=== PATIENT | male | born 1980 | race Caucasian/White ===

== ENCOUNTER 2017-02-03 22:18 | Emergency (ER) | payer BC, OTHER ==
[~2017-02-03] VITALS: Ht 185.4 cm; Wt 117.9 kg
[2017-02-03 22:44] VITALS: BP_SYST 137
[2017-02-04 00:18] VITALS: BP_SYST 125
== END 2017-02-04 00:21 | disposition home or self-care (01) ==
LOC: SED 22:18
DX: S16.1XXA Strain of muscle, fascia and tendon at neck level, initial encounter (principal); T14.8 Other injury of unspecified body region; M25.511 Pain in right shoulder; M25.531 Pain in right wrist; M54.9 Dorsalgia, unspecified; K21.9 Gastro-esophageal reflux disease without esophagitis; F41.9 Anxiety disorder, unspecified; F43.10 Post-traumatic stress disorder, unspecified; V89.2XXA Person injured in unspecified motor-vehicle accident, traffic, initial encounter; Y93.89 Activity, other specified; Y99.8 Other external cause status; Y92.89 Other specified places as the place of occurrence of the external cause
CPT/HCPCS: 72050-TC; 73030; 99284

== ENCOUNTER 2017-03-14 09:04 | Emergency (ER) | payer BC, OTHER ==
[~2017-03-14] VITALS: Ht 185.4 cm; Wt 117.9 kg
[2017-03-14 09:29] VITALS: BP 124/89; PULSE 67; RESP 16; TEMP 97.7; O2SAT 98
[2017-03-14] MEDS ORDERED: KETOROLAC TROMETHAMINE 60 MG/2 ML VIAL IM ONE (10:15)
[2017-03-14 11:25] VITALS: BP 131/62; PULSE 69; RESP 16; TEMP 98; O2SAT 96
== END 2017-03-14 11:25 | disposition home or self-care (01) ==
LOC: SED 09:04
DX: S39.012A Strain of muscle, fascia and tendon of lower back, initial encounter (principal); F41.9 Anxiety disorder, unspecified; K21.9 Gastro-esophageal reflux disease without esophagitis; F43.10 Post-traumatic stress disorder, unspecified; X58.XXXA Exposure to other specified factors, initial encounter; Y93.89 Activity, other specified; Y92.89 Other specified places as the place of occurrence of the external cause; Y99.8 Other external cause status
CPT/HCPCS: 96372; 99283; J1885

== ENCOUNTER 2017-08-19 15:46 | Emergency (ER) | payer BC, OTHER ==
[~2017-08-19] VITALS: Ht 182.9 cm; Wt 117.9 kg
[2017-08-19 15:46] VITALS: BP_SYST 161
--- NOTE | 2017-08-19 15:46 | NUR ---
BROUGHT BACK TO BED #3 AND TRIAGED. REPORT GIVEN TO SONU
--- NOTE | 2017-08-19 16:00 | NUR ---
Patient to ER via triage with c/o dog bite to left forearm, from unknown dog. Unknown on vaccine status of dog. Patient with dressing applied to left forearm with no active bleeding noted, patient reports that there was "bleeding all over" patient thinks that a vein was punctured. Awaiting evaluation by ER MD-will continue to observe and assess.
--- NOTE | 2017-08-19 16:20 | NUR ---
Dr Garcia at bedside to evaluate patient.
[2017-08-19] MEDS ORDERED: AMOXICILLIN/CLAVULANATE POTASSIUM 875 MG TABLET PO ONE (16:30)
[2017-08-19] MEDS ORDERED: BACITRACIN 1 GM OINT TP ONE (16:30)
[2017-08-19] MEDS ORDERED: ACETAMINOPHEN 500 MG TABLET PO ONE (16:30)
--- NOTE | 2017-08-19 18:30 | NUR ---
Patient given written and verbal discharge instructions and verbalizes understanding. ER MD discussed with patient the results and treatment provided. Patient in stable condition. ID arm band removed. Rx of Motrin, Augmentin given. Patient educated on pain management and to follow up with PMD. Pain Scale 2. Opportunity for questions provided and answered. Patient left ER ambulating with slow, steady gait. No adverse reaction noted to medication.
== END 2017-08-19 18:30 | disposition home or self-care (01) ==
LOC: SED 15:46
DX: S61.432A Puncture wound without foreign body of left hand, initial encounter (principal); K21.9 Gastro-esophageal reflux disease without esophagitis; F41.9 Anxiety disorder, unspecified; F43.10 Post-traumatic stress disorder, unspecified; W54.0XXA Bitten by dog, initial encounter; Y93.89 Activity, other specified; Y92.89 Other specified places as the place of occurrence of the external cause; Y99.8 Other external cause status
CPT/HCPCS: 99284